=== PATIENT | female | born 1995 | race Caucasian/White ===

== ENCOUNTER 2018-05-04 18:57 | Emergency (ER) | payer SELFPAY ==
[2018-05-04 19:06] VITALS: BP 125/82
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
== END 2018-05-04 19:40 | disposition home or self-care (01) ==
LOC: UCEAST 18:57
DX: S39.012A Strain of muscle, fascia and tendon of lower back, initial encounter (principal); V43.52XA Car driver injured in collision with other type car in traffic accident, initial encounter; Y93.89 Activity, other specified; Y92.410 Unspecified street and highway as the place of occurrence of the external cause; R51 Headache; Z88.2 Allergy status to sulfonamides
CPT/HCPCS: 99202; G0463

== ENCOUNTER 2018-12-20 12:38 | Emergency (ER) | payer BC, MEDICAID ==
[2018-12-20 12:50] VITALS: BP 133/85
--- NOTE | 2018-12-20 13:06 | UC ---
- HPI Summary HPI Summary: Patient is a 23-year-old female, at roughly 8 weeks, here with cramping. Patient's had lower abdominal cramping since Monday. Patient did have some spotting on Monday which has resolved. Patient has no vaginal discharge, fever , abdominal pain, diarrhea, constipation. Patient seen a facilities planner for her . Patient is unsure of her blood type Medications reviewed - History of Current Complaint Chief Complaint: UCAbdominalPain Stated Complaint: PERSONAL Time Seen by Provider: 12/20/18 12:42 Pain Intensity: 5 - Assessment Hx Now: Yes - edc 07/31/19 - Allergies/Home Medications Allergies/Adverse Reactions: Allergies Allergy/AdvReac Type Severity Reaction Status Date / Time Sulfa (Sulfonamide Allergy Severe Anaphylatic Verified 12/20/18 13:42 Antibiotics) Shock iodine Allergy Rash Verified 12/20/18 13:42 Home Medications: Home Medications 105/Iron/Folic AC/Dha [Prena1 True Combo Pack] 1 tab PO DAILY 12/20/18 [History Confirmed 12/20/18] PMH/Surg Hx/FS Hx/Imm Hx Previously Healthy: Yes - Surgical History Surgical History: Yes Surgery Procedure, Year, and Place: TONSILLECTOMY - Family History Known Family History: Positive: Non-Contributory - Social History Alcohol Use: None Substance Use Type: None Smoking Status (MU): Never Smoked Tobacco Review of Systems All Other Systems Reviewed And Are Negative: Yes Constitutional: Negative: Fever, Chills Gastrointestinal: Negative: Abdominal Pain, Vomiting, Diarrhea Genitourinary: Positive: Abnormal Bleeding. Negative: Hematuria Physical Exam - Summary Physical Exam Summary: Vital Signs Reviewed: Yes A+Ox3, no distress Eyes: Conjunctiva Clear, PERRL. EOM intact and full ENT: Hearing grossly normal TM x 2 clear, moist, uvula midline, no exudate, no erythema Neck: Positive: Supple Respiratory: Positive: No respiratory distress, No accessory muscle use + CTA throughout no w/r Cardiovascular: RRR nl s1, s2 no m/r CBT <2 sec abd soft + BS nt/nd no guarding, no distension Musculoskeletal Exam: RANDLE x 4 without difficulty Strength Intact, ROM Intact Neurological: Positive: Alert, + sensation throughout Psychological: Positive: Normal Response To Family Skin: no rash, no ecchymosis - Physical Exam Triage Information Reviewed: Yes Diagnostics - Vital Signs Vital Signs Temp Pulse Resp BP Pulse Ox 12/20/18 12:46 99.4 F 120 20 133/85 100 - Laboratory Lab Statement: Any lab studies that have been ordered have been reviewed, and results considered in the medical decision making process. - Course Course Of Treatment: Patient is here with vaginal bleeding in the setting of . Patient did have some cramping and was concerned about an ectopic . Patient was directed to the emergency department for further management and care. Patient went there via POV. - Differential Diagnosis/HQI/PQRI: Incomplete , Missed , Spontaneous , Threatened , Ectopic , Early , Vaginal Bleeding - Diagnoses Provider Diagnoses: , Vaginal bleeding Discharge - Sign-Out/Discharge Documenting (check all that apply): Patient Departure All imaging exams completed and their final reports reviewed: No Studies - Discharge Plan Condition: Guarded Disposition: HOME-RECOMMEND TO ED Patient Education Materials: Ectopic (DC) Referrals: Jose Beck MD [Primary Care Provider] - Additional Instructions: Please go straight to the emergency department to be evaluated for ectopic Please 911 if you have severe vaginal bleeding, follicular going to pass out, severe abdominal pain - Billing Disposition and Condition Condition: GUARDED Disposition: Home-Recommend to ED
== END 2018-12-20 13:10 | disposition home health service (06) ==
LOC: UCEAST 12:38
DX: O20.9 Hemorrhage in early pregnancy, unspecified (principal); Z3A.08 8 weeks gestation of pregnancy; Z88.2 Allergy status to sulfonamides
CPT/HCPCS: 99212; G0463

== ENCOUNTER 2018-12-20 13:35 | Emergency (ER) | payer BC, MEDICAID ==
[2018-12-20 14:35] LABS: ABS Basophils 0.1 10^3/ul (0-0.2); ABS Eosinophils 0.1 10^3/ul (0-0.6); ABS Lymphocytes 1.9 10^3/ul (1.0-4.8); ABS Monocytes 0.7 10^3/ul (0-0.8); ABS Neutrophils 8.7 10^3/ul (1.5-7.7); Eosinophil % 0.7 %; Hematocrit 39 % (35-47); Hemoglobin 13.2 g/dL (12.0-16.0); Lymphocyte % 16.7 %; Mean Corpuscular HGB Conc 34 g/dL (31-36); Mean Corpuscular Hemoglobin 29 pg (27-31); Mean Corpuscular Volume 84 fL (80-97); Mean Platelet Volume 7.2 fL (7.4-10.4); Platelet Count 267 10^3/uL (150-450); Red Cell Distribution Width 13 % (10-15); White Blood Count 11.5 10^3/uL (3.5-10.8)
[2018-12-20 14:57] LABS: Albumin 4.6 g/dL (3.2-5.2); Albumin/Globulin Ratio 1.6 (1-3); BUN/Creatinine Ratio 15.5 (8-20); C Reactive Protein 7.7 mg/L (<8.01); Calcium 9.4 mg/dL (8.6-10.3); EGFR African American 158.8 (>60); EGFR Non-African American 131.2 (>60); Globulin 2.9 g/dL (2-4); Total Bilirubin 0.6 mg/dL (0.2-1.0); Total Protein 7.5 g/dL (6.4-8.9)
[2018-12-20 17:37] LABS: Urine Appearance Clear; Urine Bacteria Absent (Absent); Urine Bilirubin Negative (Negative); Urine Blood Negative (Negative); Urine Color Straw; Urine Glucose Negative (Negative); Urine Ketones Negative (Negative); Urine Nitrite Negative (Negative); Urine Protein Negative (Negative); Urine Red Blood Cell Trace(0-2/hpf) (Absent); Urine Specific Gravity 1.006 (1.010-1.030); Urine Squamous Epithelial Cell Present (Absent); Urine Urobilinogen Negative (Negative); Urine White Blood Cell Trace(0-5/hpf) (Absent)
[2018-12-20] MEDS ORDERED: Cephalexin CAP* 500 MG PO ONE (17:58)
--- NOTE | 2018-12-20 18:04 | ED ---
Abdominal Pain/Female - HPI Summary HPI Summary: 23 year old F patient presenting to [facility] accompanied by female friend with a chief complaint of sharp left lower abdominal pain particularly above the groin that can be debilitating described as a giant gas bubble sitting on the left side of the body for the last 2 weeks. Patient reports lower back pain that started 3 days ago, 12/17/18. Patient is currently 8 weeks for the 2nd time as planned. Patient reports that the back pain went away upon entering the [facility]. Patient denies any unusual vaginal discharge but does report she is urinating more than is usual for how early she is in her . Patient reports constipation, vomiting (similar to during 1st ), and a low grade fever. Pt denies any diarrhea, diaphoresis, chills, erythema of eyes, sore throat, CP, SOB, cough, dysuria, hematuria, myalgia, edema, rash, or dizziness. Patient denies taking medications. Symptoms aggravated by sitting and laying down (more so than general movement). Symptoms alleviated by nothing. - History of Current Complaint Chief Complaint: EDOBProblems Stated Complaint: ABD PAIN Time Seen by Provider: 12/20/18 16:11 Hx Obtained From: Patient Hx Last Menstrual Period: 10/24/18 ?: Yes Onset/Duration: Lasting Weeks - 2, Still Present Pain Intensity: 4 Pain Scale Used: 0-10 Numeric Location: Suprapubic - left lower Radiates to: Back Aggravating Factor(s): Nothing Alleviating Factor(s): Nothing Associated Signs and Symptoms: Positive: Fever, Back Pain, Constipation, Vaginal Discharge, Vomiting, Other: - Pt denies any chills, erythema of eyes, sore throat, SOB, dysuria, hematuria, myalgia, edema, rash. Negative: Diaphoresis, Cough, Chest Pain, Dizzy, Vaginal Bleeding, Diarrhea Allergies/Adverse Reactions: Allergies Allergy/AdvReac Type Severity Reaction Status Date / Time Sulfa (Sulfonamide Allergy Severe Anaphylatic Verified 12/20/18 13:42 Antibiotics) Shock iodine Allergy Rash Verified 12/20/18 13:42 PMH/Surg Hx/FS Hx/Imm Hx Endocrine/Hematology History: Denies: Hx Diabetes Cardiovascular History: Denies: Hx Hypotension, Hx Hypertension Sensory History: Reports: Hx Contacts or Glasses Opthamlomology History: Reports: Hx Contacts or Glasses - Surgical History Surgery Procedure, Year, and Place: TONSILLECTOMY Infectious Disease History: No Infectious Disease History: Denies: Traveled Outside the [place] in Last 30 Days - Family History Known Family History: Positive: Other - hypertension, hypotension, Non- Contributory - Social History Alcohol Use: None Hx Substance Use: No Substance Use Type: Reports: None Hx Tobacco Use: No Smoking Status (MU): Never Smoked Tobacco Review of Systems Positive: Fever. Negative: Chills, Skin Diaphoresis Negative: Erythema Negative: Sore Throat Negative: Chest Pain Negative: Shortness Of Breath, Cough Positive: Abdominal Pain, Vomiting, Other - constipation. Negative: Diarrhea Genitourinary: Other - urinating a lot Positive: discharge. Negative: dysuria, hematuria Positive: Other - back pain. Negative: Myalgia, Edema Negative: Rash Neurological: Other - denies dizziness All Other Systems Reviewed And Are Negative: Yes Physical Exam - Summary Physical Exam Summary: Constitutional: Well-developed, Well-nourished, Alert. (-) Distressed Skin: Warm, Dry HENT: Normocephalic; Atraumatic Eyes: Conjunctiva normal Neck: Musculoskeletal ROM normal neck. (-) JVD, (-) Stridor, (-) Tracheal deviation Cardio: Rhythm regular, rate normal, Heart sounds normal; Intact distal pulses; The pedal pulses are 2+ and symmetric. Radial pulses are 2+ and symmetric. (-) Murmur Pulmonary/Chest wall: Effort normal. (-) Respiratory distress, (-) Wheezes, (-) Rales Abd: mild suprapubic and left lower quadrant tenderness Musculoskeletal: (-) Edema Lymph: (-) Cervical adenopathy Neuro: Alert, Oriented x3 Psych: Mood and affect Normal Triage Information Reviewed: Yes Vital Signs On Initial Exam: Initial Vitals Temp Pulse Resp BP Pulse Ox 98.9 F 132 16 130/90 97 12/20/18 13:37 12/20/18 13:37 12/20/18 13:37 12/20/18 13:37 12/20/18 13:37 Vital Signs Reviewed: Yes Diagnostics - Vital Signs Vital Signs Temp Pulse Resp BP Pulse Ox 12/20/18 17:20 99.4 F 117 18 115/65 98 12/20/18 15:54 98.8 F 116 16 120/80 98 12/20/18 13:37 98.9 F 132 16 130/90 97 - Laboratory Lab Results: Lab Results 12/20/18 12/20/18 12/20/18 Range/Units 14:22 14:22 14:22 WBC 11.5 H (3.5-10.8) 10^3/uL RBC 4.60 (3.70-4.87) 10^6 /uL Hgb 13.2 (12.0-16.0) g/dL Hct 39 (35-47) % MCV 84 (80-97) fL MCH 29 (27-31) pg MCHC 34 (31-36) g/dL RDW 13 (10-15) % Plt Count 267 (150-450) 10^3/uL MPV 7.2 L (7.4-10.4) fL Neut % (Auto) 75.7 % Lymph % (Auto) 16.7 % [place] % (Auto) 6.1 % Eos % (Auto) 0.7 % Baso % (Auto) 0.8 % Absolute Neuts (auto) 8.7 H (1.5-7.7) 10^3/ul Absolute Lymphs (auto) 1.9 (1.0-4.8) 10^3/ul Absolute Monos (auto) 0.7 (0-0.8) 10^3/ul Absolute Eos (auto) 0.1 (0-0.6) 10^3/ul Absolute Basos (auto) 0.1 (0-0.2) 10^3/ul Absolute Nucleated RBC 0.0 10^3/ul Nucleated RBC % 0.0 Sodium 135 (135-145) mmol/L Potassium 4.0 (3.5-5.0) mmol/L Chloride 104 (101-111) mmol/L Carbon Dioxide 23 (22-32) mmol/L Anion Gap 8 (2-11) mmol/L BUN 9 (6-24) mg/dL Creatinine 0.58 (0.51-0.95) mg/dL Est GFR ( Amer) 158.8 (>60) Est GFR (Non-Af Amer) 131.2 (>60) BUN/Creatinine Ratio 15.5 (8-20) Glucose 124 H (70-100) mg/dL Lactic Acid 1.2 (0.5-2.0) mmol/L Calcium 9.4 (8.6-10.3) mg/dL Total Bilirubin 0.60 (0.2-1.0) mg/dL AST 14 (13-39) U/L ALT 9 (7-52) U/L Alkaline Phosphatase 71 (34-104) U/L C-Reactive Protein 7.70 (<8.01) mg/L Total Protein 7.5 (6.4-8.9) g/dL Albumin 4.6 (3.2-5.2) g/dL Globulin 2.9 (2-4) g/dL Albumin/Globulin Ratio 1.6 (1-3) Lipase 22 (11.0-82.0) U/L Beta HCG, Quant 78075.00 mIU/mL Urine Color Urine Appearance Urine pH (5-9) Ur Specific [place] (1.010-1.030) Urine Protein (Negative) Urine Ketones (Negative) Urine Blood (Negative) Urine Nitrate (Negative) Urine Bilirubin (Negative) Urine Urobilinogen (Negative) Ur Leukocyte Esterase (Negative) Urine WBC (Auto) (Absent) Urine RBC (Auto) (Absent) Ur Squamous Epith Cells (Absent) Urine Bacteria (Absent) Urine Glucose (Negative) Blood Type Antibody Screen 12/20/18 12/20/18 Range/Units 14:22 17:25 WBC (3.5-10.8) 10^3/uL RBC (3.70-4.87) 10^6 /uL Hgb (12.0-16.0) g/dL Hct (35-47) % MCV (80-97) fL MCH (27-31) pg MCHC (31-36) g/dL RDW (10-15) % Plt Count (150-450) 10^3/uL MPV (7.4-10.4) fL Neut % (Auto) % Lymph % (Auto) % [place] % (Auto) % Eos % (Auto) % Baso % (Auto) % Absolute Neuts (auto) (1.5-7.7) 10^3/ul Absolute Lymphs (auto) (1.0-4.8) 10^3/ul Absolute Monos (auto) (0-0.8) 10^3/ul Absolute Eos (auto) (0-0.6) 10^3/ul Absolute Basos (auto) (0-0.2) 10^3/ul Absolute Nucleated RBC 10^3/ul Nucleated RBC % Sodium (135-145) mmol/L Potassium (3.5-5.0) mmol/L Chloride (101-111) mmol/L Carbon Dioxide (22-32) mmol/L Anion Gap (2-11) mmol/L BUN (6-24) mg/dL Creatinine (0.51-0.95) mg/dL Est GFR ( Amer) (>60) Est GFR (Non-Af Amer) (>60) BUN/Creatinine Ratio (8-20) Glucose (70-100) mg/dL Lactic Acid (0.5-2.0) mmol/L Calcium (8.6-10.3) mg/dL Total Bilirubin (0.2-1.0) mg/dL AST (13-39) U/L ALT (7-52) U/L Alkaline Phosphatase (34-104) U/L C-Reactive Protein (<8.01) mg/L Total Protein (6.4-8.9) g/dL Albumin (3.2-5.2) g/dL Globulin (2-4) g/dL Albumin/Globulin Ratio (1-3) Lipase (11.0-82.0) U/L Beta HCG, Quant mIU/mL Urine Color Straw Urine Appearance Clear Urine pH 7.0 (5-9) Ur Specific [place] 1.006 L (1.010-1.030) Urine Protein Negative (Negative) Urine Ketones Negative (Negative) Urine Blood Negative (Negative) Urine Nitrate Negative (Negative) Urine Bilirubin Negative (Negative) Urine Urobilinogen Negative (Negative) Ur Leukocyte Esterase Trace A (Negative) Urine WBC (Auto) Trace(0-5/hpf) (Absent) Urine RBC (Auto) Trace(0-2/hpf) (Absent) Ur Squamous Epith Cells Present A (Absent) Urine Bacteria Absent (Absent) Urine Glucose Negative (Negative) Blood Type O Positive Antibody Screen Negative Result Diagrams: 12/20/18 14:22 12/20/18 14:22 Lab Statement: Any lab studies that have been ordered have been reviewed, and results considered in the medical decision making process. - Ultrasound Transvaginal US Ultrasound Interpretation Completed By: Radiologist Summary of Ultrasound Findings: Per radiologist,. A gestational sac is noted in the left uterine horn of the bicornuate uterus. measuring 6 weeks 3 days. The pole is now identified although a yolk sac is. identified. Follow-up exam is suggested. No adnexal masses are noted. ED physician has reviewed this imaging report. Abdominal Pain Fem Course/Dx - Course Course Of Treatment: 23 year old F patient presenting to [facility] accompanied by female friend with a chief complaint of sharp left lower abdominal pain particularly above the groin that can be debilitating described as a giant gas bubble sitting on the left side of the body for the last 2 weeks. Patient reports lower back pain that started 3 days ago, 12/17/18. Patient is currently 8 weeks for the 2nd time as planned. Patient reports that the back pain went away upon entering the [facility]. Patient denies any unusual vaginal discharge but does report she is urinating more than is usual for how early she is in her . Patient reports constipation, vomiting (similar to during 1st ), and a low grade fever. Pt denies any diarrhea, diaphoresis, chills , erythema of eyes, sore throat, CP, SOB, cough, dysuria, hematuria, myalgia, edema, rash, or dizziness. Patient denies taking medications. Symptoms aggravated by sitting and laying down (more so than general movement). Physical exam reveals no abnormalities except for mild suprapubic and left lower quadrant tenderness. Blood work shows no abnormalities except for WBC 11.5 H, MPV 7.2 L, Absolute Neuts 8.7 H, and Glucose 124 H. Urinalysis reveals no abnormalities except for Ur Specific [place] 1.006 L, Ur Leukocyte Esterase Trace A, and Ur Squamous Epith Cells Present A. Patient was given 500 mg cephalexin hcl PO in the ED. Transvaginal US reveals A gestational sac is noted in the left uterine horn of the bicornuate uterus. measuring 6 weeks 3 days. The pole is now identified although a yolk sac is identified. Follow -up exam is suggested. No adnexal masses are noted. Physician discusses discharge with patient who accepts discharge. Patient will be discharged and follow up with OB and primary care provider within 2-3 days. - Diagnoses Provider Diagnoses: First trimester , Bicornuate uterus, Urinary frequency Discharge - Sign-Out/Discharge Documenting (check all that apply): Patient Departure - discharge Patient Received Moderate/Deep Sedation with Procedure: No - Discharge Plan Condition: Stable Disposition: HOME Prescriptions: Cephalexin CAP* [Keflex CAP*] 500 mg PO QID #20 cap Patient Education Materials: (ED) Forms: *Work Release Referrals: Jose Beck MD [Primary Care Provider] - 3 Days Yasmine Felix MD [Medical Doctor] - 3 Days Additional Instructions: Follow up with MD PHYSICIAN DERMATOLOGIST and primary care provider within 2-3 days. Return to ED for any new or worsening symptoms. - Attestation Statements Document Initiated by Scribe: Yes Documenting Scribe: Renae De La Garza Provider For Whom Michele is Documenting (Include Credential): Dr. Juan Alberto Chapa MD Scribe Attestation: I, Renae De La Garza, scribed for Dr. Juan Alberto Chapa MD on 12/21/18 at 0031. Status of Scribe Document: Ready Work/School/Physical Ed Notes - Work Note Work Note: The above employee has been evaluated on 12/20/18. The physician has instructed the employee concerning further work as described below. Work Status: [] MICHELE Muniz - School Note School Note: Patient:LIT GARCIA Date:12/20/18 Time: 1813 The student was evaluated here today. The physician has determined that school absence is medically necessary. Date of onset of illness or injury: [] Excuse from school 12/20/18 through []. 12/20/18 MICHELE Muniz Date - Physical Education Note Physical Education Note: Patient: LIT GARCIA Date:12/20/18 Time:1813 The above patient was evaluated 12/20/18. The physician has determined that physical activity must be restricted. While the patient may return to school, they should NOT participate in any physical education activity. This restriction is valid through [] Thank you, MICHELE Muniz 12/20/18
[2018-12-20 18:28] VITALS: BP 106/70
== END 2018-12-20 18:27 | disposition home or self-care (01) ==
LOC: ED 13:35
DX: O34.01 Maternal care for unspecified congenital malformation of uterus, first trimester (principal); Q51.3 Bicornate uterus; R35.0 Frequency of micturition; R50.9 Fever, unspecified; K59.00 Constipation, unspecified; Z3A.01 Less than 8 weeks gestation of pregnancy; Z88.3 Allergy status to other anti-infective agents; Z88.2 Allergy status to sulfonamides
CPT/HCPCS: 36415; 76817; 80053; 81003; 81015; 83605; 83690; 84702; 85025; 86140; 86850; 86900; 86901; 87086; 99282; A9270-GY

== ENCOUNTER 2019-03-06 15:38 | Emergency (ER) | payer BC, MEDICAID ==
[2019-03-06 16:05] VITALS: BP 117/73
--- NOTE | 2019-03-06 16:37 | UC ---
Complaint Female HPI - HPI Summary HPI Summary: Patient is a 23-year-old female 16 weeks presenting with frequency of urination 3 days. Also notes foul odor cloudy urine. Denies burning. Denies blood in the urine. Denies abnormal discharge. Denies fever, chills, nausea, vomiting. Denies low back pain and flank pain. Denies abdominal or pelvic pain. - History Of Current Complaint Chief Complaint: UCGU Stated Complaint: URINARY Hx Obtained From: Patient Hx Last Menstrual Period: 10/24/18 Onset/Duration: Gradual Onset, Lasting Days Pain Intensity: 2 - Allergies/Home Medications Allergies/Adverse Reactions: Allergies Allergy/AdvReac Type Severity Reaction Status Date / Time Sulfa (Sulfonamide Allergy Severe Anaphylatic Verified 03/06/19 16:05 Antibiotics) Shock iodine Allergy Rash Verified 03/06/19 16:05 PMH/Surg Hx/FS Hx/Imm Hx Previously Healthy: Yes - Surgical History Surgical History: Yes Surgery Procedure, Year, and Place: TONSILLECTOMY - Family History Known Family History: Positive: Other - hypertension, hypotension, Non- Contributory - Social History Alcohol Use: None Substance Use Type: None Smoking Status (MU): Never Smoked Tobacco Review of Systems All Other Systems Reviewed And Are Negative: Yes Constitutional: Positive: Negative. Negative: Fever, Chills Respiratory: Positive: Negative. Negative: Shortness Of Breath Cardiovascular: Positive: Negative. Negative: Palpitations, Chest Pain Gastrointestinal: Positive: Negative. Negative: Abdominal Pain, Vomiting, Diarrhea, Nausea Genitourinary: Positive: Frequency. Negative: Dysuria, Hematuria, Urgency, Vaginal/Penile Burning, Vaginal/Penile Itching, Vaginal/Penile Discharge, Vaginal/Penile Pain, Vaginal/Penile Tenderness, Abnormal Bleeding Musculoskeletal: Positive: Negative Neurological: Positive: Negative. Negative: Paresthesia, Numbness Physical Exam Triage Information Reviewed: Yes Appearance: Well-Appearing, No Pain Distress, Well-Nourished Vital Signs: Initial Vital Signs Temp 99 F 03/06/19 16:01 Pulse 96 03/06/19 16:01 Resp 16 03/06/19 16:01 BP 117/73 03/06/19 16:01 Pulse Ox 97 03/06/19 16:01 Lab Results 03/06/19 03/06/19 Range/Units 16:22 16:27 POC Urine Color Yellow POC Urine Clarity Clear POC Urine pH 7.0 (5-9) POC Ur Specif [place] 1.010 (1.010-1.030) POC Urine Protein Negative (Negative) POC Ur Glucose (UA) Negative (Negative) POC Urine Ketones Negative (Negative) POC Urine Blood Negative (Negative) POC Urine Nitrite Negative (Negative) POC Urine Bilirubin Negative (Negative) POC Urine Urobilinogen 0.2 (Negative) POC U Leukocyte Esteras 1+ A (Negative) POC Ur Test Positive A (Negative) Vital Signs Reviewed: Yes Eyes: Positive: Conjunctiva Clear ENT: Positive: Hearing grossly normal Neck: Positive: Supple Respiratory Exam: Normal Respiratory: Positive: Lungs clear, Normal breath sounds, No respiratory distress Cardiovascular Exam: Normal Cardiovascular: Positive: RRR. Negative: Tachycardia, Bradycardia Abdominal Exam: Normal Abdomen Description: Positive: Nontender, Soft, Distended. Negative: CVA Tenderness (R), CVA Tenderness (L), Guarding Neurological: Positive: Alert Psychological: Positive: Age Appropriate Behavior Complaint Female Dx - Course Course Of Treatment: Discussed positive urine with patient. I am treating with Macrobid for UTI. A urine culture was also ordered. Instructed patient to go to the emergency room if she experiences persistent symptoms or fever, chills, nausea, vomiting, or low back pain. She voiced understanding and agreed with the treatment plan. Also discussed patient with Dr. Lindo who agreed with the treatment plan. - Differential Dx/Diagnosis Provider Diagnosis: UTI (urinary tract infection) in in second trimester Discharge ED - Sign-Out/Discharge Documenting (check all that apply): Patient Departure All imaging exams completed and their final reports reviewed: No Studies - Discharge Plan Condition: Stable Disposition: HOME Prescriptions: Nitrofurantoin Monohyd/M-Cryst [Macrobid 100 mg Capsule] 100 mg PO Q12H #10 cap Patient Education Materials: Urinary Tract Infection in (ED) Forms: *Work Release Referrals: Jose Beck MD [Primary Care Provider] - If Needed Additional Instructions: Take Macrobid for treatment of your UTI. Drink plenty of fluids. Go to the emergency room if you experience persistent symptoms, blood in the urine, abdominal or pelvic pain, low back pain, fever, chills, nausea, or vomiting. - Billing Disposition and Condition Condition: STABLE Disposition: Home
--- NOTE | 2019-03-08 15:39 | UC ---
- Progress Note Progress Note: urine culture negative stop antibiotic recheck with PCP if still symptomatic Course/Dx - Diagnoses Provider Diagnoses: UTI (urinary tract infection) in in second trimester Discharge ED - Sign-Out/Discharge Documenting (check all that apply): Post-Discharge Follow Up All imaging exams completed and their final reports reviewed: No Studies - Discharge Plan Condition: Stable Disposition: HOME Prescriptions: Nitrofurantoin Monohyd/M-Cryst [Macrobid 100 mg Capsule] 100 mg PO Q12H #10 cap Patient Education Materials: Urinary Tract Infection in (ED) Forms: *Work Release Referrals: Jose Beck MD [Primary Care Provider] - If Needed Additional Instructions: Take Macrobid for treatment of your UTI. Drink plenty of fluids. Go to the emergency room if you experience persistent symptoms, blood in the urine, abdominal or pelvic pain, low back pain, fever, chills, nausea, or vomiting. - Billing Disposition and Condition Condition: STABLE Disposition: Home
== END 2019-03-06 16:52 | disposition home or self-care (01) ==
LOC: UCEAST 15:38
DX: O23.42 Unspecified infection of urinary tract in pregnancy, second trimester (principal); Z91.09 Other allergy status, other than to drugs and biological substances; Z88.2 Allergy status to sulfonamides; Z3A.16 16 weeks gestation of pregnancy
CPT/HCPCS: 81003; 84702; 87086; 99212; G0463